=== PATIENT | male | born 1945 | race Caucasian/White ===

== ENCOUNTER → 2024-02-14 08:34 | Outpatient (REF) | payer MEDICARE, OTHER, SELFPAY | LOC: RAD 08:34 | PROVIDERS: ATTENDING PHYSICIAN Nurse Practitioner; FAMILY PHYSICIAN Family Medicine | DX: H53.2 Diplopia (principal) | CPT/HCPCS: 70496; 70498; Q9967 ==

== ENCOUNTER → 2024-04-06 13:51 | Outpatient (REF) | payer MEDICARE, OTHER, SELFPAY | LOC: HWRAD 13:51 | PROVIDERS: ATTENDING PHYSICIAN Otolaryngology Facial Plastic Surgery; FAMILY PHYSICIAN Family Medicine | DX: D11.0 Benign neoplasm of parotid gland (principal) | CPT/HCPCS: 76536 ==

== ENCOUNTER 2024-04-22 23:23 | Inpatient (IN) | payer MEDICARE, OTHER, SELFPAY ==
[2024-04-22 18:10] VITALS: BP 111/64
[2024-04-22] MEDS: TYLENOL 650 MG PO (18:24)
[2024-04-22 19:01] LABS: Urine Albumin 3+ (Neg - Trace); Urine Bilirubin Negative (Negative); Urine Character Very Cloudy (Clear); Urine Color Red; Urine Glucose Negative (Negative); Urine Ketone Trace (Negative); Urine Leukocyte 2+ (Negative); Urine Nitrite Negative (Negative); Urine Occult Blood 4+ (Negative); Urine Specific Gravity 1.015 (<1.030); Urine Urobilinogen Negative (Neg - 1+)
[2024-04-22 19:08] LABS: % Basophils 0.4 % (0-2); % Eosinophils 0.2 % (0-6); % Immature Granulocytes 0.6 % (0-0.5); % Lymphocytes 2.4 % (20.5-51.1); % Neutrophils 86.4 % (42.2-75.2); Absolute Immature Granulocytes 0.1 10^3/uL (0-0.05); Absolute Lymphocytes 0.3 10^3/uL (1.2-3.4); Absolute Neutrophils 8.9 10^3/uL (1.4-6.5); Hematocrit 37.3 % (39.0-52.0); Hemoglobin 13.1 g/dL (13.0-18.0); Mean Corp Hgb Conc. 35.1 g/dL (33.0-37.0); Mean Corpuscular Volume 88.2 fL (80.0-94.0); Mean Platelet Volume 10.3 fL (7.4-10.4); Nucleated Red Blood Cells % 0 % (-); Platelet Count 154 10^3/uL (130-400); Red Blood Cell Count 4.23 10^6/uL (4.70-6.10); White Blood Cell Count 10.3 10^3/uL (4.8-10.8)
[2024-04-22 19:13] LABS: Urine Squamous Cell 0-2 /LPF (Few)
[2024-04-22 19:14] LABS: Urine Bacteria Few (Negative); Urine Red Blood Cell 80-90 /HPF (0-2); Urine White Cell 16-20 /HPF (0-5)
[2024-04-22 19:16] LABS: ALT (SGPT) 115 U/L (0-50); AST (SGOT) 86 U/L (17-59); Albumin 4.1 g/dl (3.5-5.0); Alkaline Phosphatase 68 U/L (38-126); Blood Urea Nitrogen 21 mg/dl (9-20); Calcium 9.5 mg/dl (8.4-10.2); Carbon Dioxide 22 mmol/L (22-30); Chloride 101 mmol/L (98-107); Glucose 110 mg/dl (70-99); Potassium 3.9 mmol/L (3.5-5.1); Sodium 134 mmol/L (135-145); Total Bilirubin 0.7 mg/dl (0.2-1.3); Total Protein 6.4 g/dl (6.3-8.2); eGFR > 60.00
[2024-04-22 19:17] LABS: COVID-19 Antigen Negative (Negative)
--- NOTE | 2024-04-22 19:34 | ED.GENMED ---
History of Present Illness
<Mak Wolfe PA-C - Last Filed: 04/22/24 22:17>
General
Chief Complaint: Fever
Source: patient
Exam Limitations: none
Time Seen by Provider: 04/22/24 19:06
History of Present Illness
History of Present Illness:
78-year-old male presents with onset of weakness rigors confusion earlier today. Earlier this week he had aqua ablation performed at [facility] for enlarged prostate. He had a Khanna catheter which was removed later. He had a voiding trial which he
passed. He has been emptying his bladder completely. He still notes some dysuria. He started on Keflex 1000 mg twice a day starting yesterday. He has had 3 total doses of this. He denies a cough. For a short period time his states that he
was having trouble finding words but this has resolved. He is healthy otherwise.
Past History
<Mak Wolfe PA-C - Last Filed: 04/22/24 22:17>
Past History
ED Past Medical History: Other (noncontibutory)
ED Past Surgical History: Other (noncontributory)
Phy Exam
<Mak Wolfe PA-C - Last Filed: 04/22/24 22:17>
Physical Exam
Physical Exam:
General: Well appearing male, nad
HEENT: NC/AT
Heart: Tachycardic but regular
Lungs; CTA bilaterally
Abd: Soft, nontender
Ext: no cyanosis or edema
Skin: warm, no rash
Neuro: alert and oriented no drift, or facial asymmetry, no aphasia or dysarthria
Sepsis
<Mak Wolfe PA-C - Last Filed: 04/22/24 22:17>
Sepsis Screening
Sepsis Assessment: Sepsis
Sepsis Screen
Sepsis Screen: Sepsis
Date: 04/22/24
Time: 22:17
Course
<Mak Wolfe PA-C - Last Filed: 04/22/24 22:17>
Orders/Labs/Results
Orders:
Orders
04/22/24 18:20
Acetaminophen [Tylenol] 650 mg .ROUTE .STK-MED ONE
04/22/24 18:21
COVID-19 Antigen Urgent
Source: Nasal Swab
Urinalysis Reflex To Culture Urgent
Date Specimen was Collected: 04/22/24
Time Specimen was Collected: 18:15
Urine Microscopic Reflex Cult Urgent
Influenza A+B Rapid Molecular Urgent
CODY Source: Nasal Swab
Specimen Description:
Urine Culture Urgent
CODY Source: U
Specimen Description:
Date Specimen was Collected: 04/22/24
Time Specimen was Collected: 18:15
04/22/24 18:23
Acetaminophen [Tylenol] 650 mg PO NOW STA
04/22/24 18:24
Complete Blood Count/With Diff Urgent
Comprehensive Metabolic Panel Urgent
04/22/24 19:25
CR Chest - 2 Views Urgent
Comment:
Reason For Exam: fever
04/22/24 20:31
CefTRIAXone [Rocephin] 1,000 mg IV NOW STA
04/22/24 21:30
Blood Culture Q30M
CODY Source: Blood/Venous
Specimen Description:
04/22/24 21:56
0.9% Sodium Chloride 1000 ml [Nss] 1,000 ml IV BOLUS
04/22/24 22:00
Blood Culture Q30M
CODY Source: Blood/Venous
Specimen Description:
Abnormal Lab Results
04/22/24 04/22/24
18:21 18:24
RBC 4.23 L 10^6/uL
(4.70-6.10)
Hct 37.3 L %
(39.0-52.0)
Abs Immat Gran (auto) 0.1 H 10^3/uL
(0-0.05)
Absolute Neuts (auto) 8.9 H 10^3/uL
(1.4-6.5)
Absolute Lymphs (auto) 0.3 L 10^3/uL
(1.2-3.4)
Absolute Monos (auto) 1.0 H 10^3/uL
(0.1-0.6)
Immature Gran % 0.6 H %
(0-0.5)
Neutrophils % 86.4 H %
(42.2-75.2)
Lymphocytes % 2.4 L %
(20.5-51.1)
Monocytes % 10.0 H %
(1.7-9.3)
Sodium 134 L mmol/L
(135-145)
BUN 21 H mg/dl
(9-20)
Glucose 110 H mg/dl
(70-99)
AST 86 H U/L
(17-59)
ALT 115 H U/L
(0-50)
Urine Ketones Trace A
(Negative)
Ur Occult Blood Reflex 4+ A
(Negative)
Leukocyte Esterase Rfl 2+ A
(Negative)
Urine RBC 80-90 A /HPF
(0-2)
Urine WBC (Reflex) 16-20 A /HPF
(0-5)
Urine Bacteria (Reflex) Few A
(Negative)
Urine Albumin (Reflex) 3+ A
(Neg - Trace)
04/22/24 18:24
04/22/24 18:24
Vital Signs
Initial and Last Documented VS:
Initial Vital Signs
Temp Pulse Resp BP Pulse Ox
101.9 F H 110 18 111/64 95
04/22/24 18:10 04/22/24 18:10 04/22/24 18:10 04/22/24 18:10 04/22/24 18:10
Last Documented Vital Signs
Temp Pulse Resp BP Pulse Ox
98.5 F 91 18 125/67 97
04/22/24 19:44 04/22/24 22:09 04/22/24 22:09 04/22/24 22:09 04/22/24 19:41
<Cristi Godinez, DO - Last Filed: 04/22/24 21:30>
Orders/Labs/Results
Orders:
Orders
04/22/24 18:20
Acetaminophen [Tylenol] 650 mg .ROUTE .STK-MED ONE
04/22/24 18:21
COVID-19 Antigen Urgent
Source: Nasal Swab
Urinalysis Reflex To Culture Urgent
Date Specimen was Collected: 04/22/24
Time Specimen was Collected: 18:15
Urine Microscopic Reflex Cult Urgent
Influenza A+B Rapid Molecular Urgent
CODY Source: Nasal Swab
Specimen Description:
Urine Culture Urgent
CODY Source: U
Specimen Description:
Date Specimen was Collected: 04/22/24
Time Specimen was Collected: 18:15
04/22/24 18:23
Acetaminophen [Tylenol] 650 mg PO NOW STA
04/22/24 18:24
Complete Blood Count/With Diff Urgent
Comprehensive Metabolic Panel Urgent
04/22/24 19:25
CR Chest - 2 Views Urgent
Comment:
Reason For Exam: fever
04/22/24 20:31
CefTRIAXone [Rocephin] 1,000 mg IV NOW STA
04/22/24 21:30
Blood Culture Q30M
CODY Source: Blood/Venous
Specimen Description:
04/22/24 21:56
0.9% Sodium Chloride 1000 ml [Nss] 1,000 ml IV BOLUS
04/22/24 22:00
Blood Culture Q30M
CODY Source: Blood/Venous
Specimen Description:
Abnormal Lab Results
04/22/24 04/22/24
18:21 18:24
RBC 4.23 L 10^6/uL
(4.70-6.10)
Hct 37.3 L %
(39.0-52.0)
Abs Immat Gran (auto) 0.1 H 10^3/uL
(0-0.05)
Absolute Neuts (auto) 8.9 H 10^3/uL
(1.4-6.5)
Absolute Lymphs (auto) 0.3 L 10^3/uL
(1.2-3.4)
Absolute Monos (auto) 1.0 H 10^3/uL
(0.1-0.6)
Immature Gran % 0.6 H %
(0-0.5)
Neutrophils % 86.4 H %
(42.2-75.2)
Lymphocytes % 2.4 L %
(20.5-51.1)
Monocytes % 10.0 H %
(1.7-9.3)
Sodium 134 L mmol/L
(135-145)
BUN 21 H mg/dl
(9-20)
Glucose 110 H mg/dl
(70-99)
AST 86 H U/L
(17-59)
ALT 115 H U/L
(0-50)
Urine Ketones Trace A
(Negative)
Ur Occult Blood Reflex 4+ A
(Negative)
Leukocyte Esterase Rfl 2+ A
(Negative)
Urine RBC 80-90 A /HPF
(0-2)
Urine WBC (Reflex) 16-20 A /HPF
(0-5)
Urine Bacteria (Reflex) Few A
(Negative)
Urine Albumin (Reflex) 3+ A
(Neg - Trace)
04/22/24 18:24
04/22/24 18:24
Vital Signs
Initial and Last Documented VS:
Initial Vital Signs
Temp Pulse Resp BP Pulse Ox
101.9 F H 110 18 111/64 95
04/22/24 18:10 04/22/24 18:10 04/22/24 18:10 04/22/24 18:10 04/22/24 18:10
Last Documented Vital Signs
Temp Pulse Resp BP Pulse Ox
98.5 F 91 18 125/67 97
04/22/24 19:44 04/22/24 22:09 04/22/24 22:09 04/22/24 22:09 04/22/24 19:41
<Mak Wolfe PA-C - Last Filed: 04/22/24 22:17>
MDM/Problems Addressed
Differential Diagnosis Includes:
Patient had episode of weakness and confusion with rigors. Found to have temperature here on arrival of 101.9. Recent Khanna catheter instrumentation and just darted Keflex. Patient now back to his neurologic baseline. No focal signs on exam. I
suspect symptoms are related to his fever not TIA given lack of other medical problems.
Will check labs including COVID flu urinalysis and chest x-ray. 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
<Mak Wolfe PA-C - Last Filed: 04/22/24 22:17>
*Critical Care Note
Total Time (30-74mins, 75-104mins- exclusive of procedures): Not Applicable
<Mak Wolfe PA-C - Last Filed: 04/22/24 22:17>
Update Note
Update Note:
Patient reevaluated temperature has improved. Urinalysis consistent with UTI. Chest x-ray negative COVID and flu are negative. Long discussion had with emergency room attending and family subsequently Regarding treatment options. Given
confusion episode and incontinence related to UTI concern for possible complicated UTI already on an oral antibiotic. Fluids ordered Rocephin ordered. Will admit for further evaluation
ED Attending Note
<Mak Wolfe PA-C - Last Filed: 04/22/24 22:17>
-
Portions of this chart may have been created with voice recognition software.� Occasional wrong word or��sound alike� substitutions may have occurred due to the inherent limitations of voice recognition software.
<Cristi Godinez DO - Last Filed: 04/22/24 21:30>
ED Attending Note
Patient seen and examined by attending physician: Yes
I performed the substantive portion of visit, reviewed & personally made and approve the management plan that is documented in note by myself or OLIVER.: Yes
ED Attending Note:
78-year-old male who just had a aqua ablation of his prostate. describes the patient earlier that was significantly altered. Patient had a fever. Has been on For a day and a half. Patient now does feel better. Denies any pain but is had
bleeding and was told he would have persistent bleeding for some time. Exam: Awake and alert, no respiratory distress, heart normal sinus rhythm on telemetry. Assessment plan: Does look better but given his altered mentation and recent aqua
ablation and Khanna catheter was just removed on Wednesday, admit. He has been on Keflex and despite that developed a fever up to 102. Concern for possible bacteremia. check cultures treat with broad-spectrum antibiotics
Discharge Plan
Departure
Patient Disposition: Admit
Date of Disposition: 04/22/24
Time of Disposition: 22:15
Presentation/result/management discussed w/ accepting MD/DO: Hospitalist
Discharge Problem:
Acute UTI
Prescriptions:
No Action
ascorbic acid (vitamin C) [Vitamin C] 1,000 mg Tablet
1,000 mg PO DAILY
cyanocobalamin (vitamin B-12) 1,000 mcg Tablet
1,000 mcg PO DAILY
travoprost 0.004 % Drops
1 drp BOTH EYES DAILY
tamsulosin 0.4 mg Capsule
0.4 mg PO DAILY
fluticasone propionate [Flonase] 50 mcg/actuation [place],Suspension
1 spray INTRANASAL DAILY
[place] 3 Fish Oil Capsule
1,000 mg PO DAILY
cholecalciferol (vitamin D3) 125 mcg (5,000 unit) Tablet
5,000 unit PO DAILY
magnesium 750 MG
750 mg PO DAILY
multivitamin
1 tab PO DAILY
acetaminophen 500 mg Tablet
1,000 mg PO Q6H PRN (Reason: pain)
Referrals:
Jerad Cole MD [Family Provider] -
Interventions
Interventions:
*Risk Screen - Suicide Last Done: 04/22/24 18:10
*General Assessment Last Done: 04/22/24 18:10
*Neglect/Abuse Screening Last Done: 04/22/24 18:10
ED- Neurological Assessment Last Done: 04/22/24 19:42
ED-Skin Assessment Last Done: 04/22/24 19:42
Discharge Date and Time
Print Language: KINYARWANDA
[2024-04-22 19:41] VITALS: BP 119/60
[2024-04-22] MEDS: ROCEPHIN 1000 MG IV (20:35)
[2024-04-22] MEDS: NSS 1000 IV (22:07)
[2024-04-22 22:09] VITALS: BP 125/67
--- NOTE | 2024-04-22 23:25 | HPS.HSE ---
Family Physician
-
Family Physician: Jerad Cole
Chief Complaint
-
Confusion, Fatigue
History of Present Illness
Patient is a 78y M with PMH significant for BPH who presents to ED complaining of confusion and fatigue. Patient states that he underwent aqua ablation procedure of the prostate on Wednesday at [facility]. He as discharged from that facility on
Wednesday. He had Khanna catheter removed on Wednesday. He was on Keflex 1000mg BID starting Wednesday AM (was supposed to begin AM but was not aware in advance that Khanna was going to be removed).
This AM, patient states that he felt cold, achy and very fatigued. He slept for most of the day. This evening when his returned home she found him to be somewhat confused and they presented to the ED for further evaluation.
In the ED, patient is noted to have fever to 101.9. He does report urinary frequency which he expected following his recent procedure.
No GI complaints. No abdominal pain or flank pain.
Medical History
Past Medical History
Past Medical History: Reports Other
Additional Past Medical History:
BPH
Dysconjugate Gaze
DJD
A-Flutter s/p Ablation
Parotid Cancer
Past Surgical History: Reports Other
Additional Past Surgical History:
Aqua Ablation of the Prostate (04/17/24)
Left TSA
A-Flutter Ablation
Parotid Excision
Hernia Repair
Cysto / Stent
Social History
Tobacco: Non-smoker
Alcohol: Daily ( 1 drink daily.)
Family History
Family History: Not pertinent
Allergies / Home Medications
Allergies reflects when Allergies were last updated in [facility].
Home Medications with original date entered in [facility]
Allergy/Medication List:
Allergies
Allergy/AdvReac Type Severity Reaction Status Date / Time
adhesive Allergy Rash Verified 02/10/22 10:53
chlorhexidine Allergy Rash Verified 02/10/22 10:53
[From Hibiclens]
codeine [Codeine] Allergy nausea, Verified 02/10/22 10:53
dizzy
isopropyl alcohol Allergy Rash Verified 02/10/22 10:53
[From ChloraPrep Clear]
povidone-iodine Allergy Rash Verified 02/10/22 10:53
[From Betadine]
pseudoephedrine Allergy heart Verified 02/10/22 10:53
[From Sudafed] flutter
soap [From Betadine] Allergy Rash Verified 02/06/22 16:19
seasonal Allergy nasal Uncoded 02/10/22 10:53
congestion
triple and double antibiotic Allergy Rash Uncoded 02/06/22 16:19
neal
Home Medications
cholecalciferol (vitamin D3) 125 mcg (5,000 unit) tablet 5,000 unit PO DAILY 02/06/22
multivitamin 1 tab PO DAILY 02/06/22
omega-3 fatty acids 1,000 mg PO DAILY 02/06/22
travoprost 0.004 % eye drops 1 drp BOTH EYES DAILY 02/06/22
acetaminophen 500 mg tablet 1,000 mg PO Q6H PRN pain 02/10/22
solifenacin 5 mg tablet 5 mg PO DAILY 04/22/24
Review of Systems
-
History Source: Patient
A 12 point ROS was completed and negative except as noted: Yes
Constitutional: Reports Fatigue and Chills; Denies Fever
EENT: Denies Sore Throat
Respiratory: Denies Cough or Trouble Breathing
Cardiac: Denies Chest Pain or Palpitations
Abdomen/GI: Denies Abdominal Pain, Nausea, Vomiting or Diarrhea
: Reports Frequency; Denies Dysuria
Musculoskeletal: Denies Joint Pain or Edema
Neurological: Denies Dizzy or Headache
Psych: Denies Depression or Anxiety
Physical Exam
Vital Signs
Vital Signs
Temp Pulse Resp BP Pulse Ox
98.5 F 91 18 125/67 97
04/22/24 19:44 04/22/24 22:09 04/22/24 22:09 04/22/24 22:09 04/22/24 19:41
Physical Exam
General: Other (78y M in no acute distress.)
HEENT: Moist mucous membranes and PERRLA
Respiratory: Clear; No Wheezes, Rales or Rhonchi
Cardiac: S1/S2 and Regular Rhythm; No Murmur
GI: Soft, Non Tender, Non Distended and Normal Bowel Sounds
Musculoskeletal: No Clubbing, No Cyanosis and No Edema
Neuro: AO x 3 and Nonfocal/grossly intact
Laboratory Results
-
04/22/24 18:24
04/22/24 18:24
Laboratory Results
Total Bilirubin 0.7 mg/dl (0.2-1.3) 04/22/24 18:24
AST 86 U/L (17-59) H 04/22/24 18:24
ALT 115 U/L (0-50) H 04/22/24 18:24
Alkaline Phosphatase 68 U/L (38-126) 04/22/24 18:24
Impression/Plan
-
A/P: Patient is a 78y M with PMH significant for BPH s/p recent aqua ablation procedure who presents to ED for evaluation of fatigue and confusion.
Sepsis likely secondary to source
Acute TME secondary to the above - improved
s/p Aqua Ablation of the Prostate
- Admit for further evaluation and treatment.
- Patient presents with fever and tachycardia with suspected urinary source of infection.
- IV abx pending urine culture data.
- Follow fever curve and monitor for any new symptoms / complaints.
- Follow for continued clinical improvement
DVT Prophylaxis: SCDs
Code Status: Full
[2024-04-23] VITALS (9 sets, daily range): BP systolic 113–161; BP diastolic 56–74; PULSE 86–121; BMI 28.8
[2024-04-23] MEDS: LR 1000 IV (01:23)
[2024-04-23] MEDS: VESICARE 5 MG PO (08:02)
[2024-04-23 08:48] LABS: Blood Urea Nitrogen 18 mg/dl (9-20); Calcium 8.9 mg/dl (8.4-10.2); Carbon Dioxide 25 mmol/L (22-30); Chloride 102 mmol/L (98-107); Estimated Creatinine Clearance 62 ml/min; Glucose 102 mg/dl (70-99); Potassium 4.1 mmol/L (3.5-5.1); Sodium 135 mmol/L (135-145); eGFR > 60.00
[2024-04-23 08:51] LABS: Hematocrit 33.8 % (39.0-52.0); Mean Corp Hgb Conc. 35.5 g/dL (33.0-37.0); Mean Corpuscular Hgb 31.3 pg (27.0-31.0); Mean Platelet Volume 10.3 fL (7.4-10.4); Platelet Count 139 10^3/uL (130-400); Red Blood Cell Count 3.84 10^6/uL (4.70-6.10); Red Cell Dist. Width 13.2 % (11.5-14.5); White Blood Cell Count 11.2 10^3/uL (4.8-10.8)
--- NOTE | 2024-04-23 09:20 | CM ---
CM following re: discharge planning.
Reviewed pt's chart, met with pt.
Pt is a 78 year old male, admitted with primary dx of Sepsis.
Pt reports he lives with spouse 2SH, no steps, has supportive daughter. Pt described himself as independent in all areas [employer]. drives. No DME, VN or SNF history.
PCP: Jerad Cole
Pharmacy: [facility]
D/C plan: home with anticipated no needs. Family to transport at discharge.
CM will follow with discharge plan updates as hospitalization progresses
--- NOTE | 2024-04-23 10:24 | W.PN.HOSP.TC ---
Today's Communication/Plan
-
Await cultures
Continue antibiotics
Repeat labs in the morning
Assessment / Plan
Assessment / Plan
Gen-AAOx3, NAD
HEENT-NC, AT, anicteric, clear oral mm
Neck-supple
CV-reg, no M, +S1/S2
Lungs-clear B/L
Abd-soft, NT, ND
Ext-no edema
Musculoskeletal-no cyanosis, clubbing
Skin-warm and dry
Neuro-grossly non-focal
Psych-calm, cooperative
Sepsis due to UTI -suspect related to recent aqua ablation procedure for BPH. Continue empiric antibiotics await cultures. Hemodynamically stable.
Acute TME - due to sepsis, UTI. Symptoms resolved.
Hyponatremia -POA, resolved.
Mild transaminitis -monitor for now.
BPH
Full code
Anticipated Discharge: 24 - 48 hours
Subjective/Interval History
-
Date of Service: April 23, 2024
Patient seen and examined. Feeling better. No complaints.
Objective Data
-
Labs:
Laboratory Results
04/23/24
07:28
WBC 11.2 H
Hgb 12.0 L
Hct 33.8 L
Plt Count 139
Sodium 135
Potassium 4.1
Chloride 102
Carbon Dioxide 25
BUN 18
Creatinine 1.1
Glucose 102 H
Calcium 8.9
Vital Signs:
Vital Signs
Temp Pulse Resp BP Pulse Ox
99.1 F 50 13 161/67 93
04/23/24 07:46 04/23/24 07:46 04/23/24 07:46 04/23/24 07:46 04/23/24 07:46
I&O
04/22/24 04/23/24 04/24/24
06:59 06:59 06:59
Intake Total 1560 / 1560 240 / 240
Balance 1560 / 1560 240 / 240
Review of Systems
-
History Source: Patient
All other systems: Reviewed and negative
[2024-04-23] MEDS: LR IV (12:23)
[2024-04-23] MEDS: ROCEPHIN 1000 MG IV (19:48)
[2024-04-23] MEDS: XALATAN OPHTHALMIC SOLUTION 1 DROP BOTH EYES (19:48)
[2024-04-23] MEDS: STERILE WATER FOR INJECTION 10 ML IV (19:48)
[2024-04-24] VITALS (7 sets, daily range): BP systolic 118–152; BP diastolic 56–72; PULSE 80; O2SAT 99; BMI 28.5
[2024-04-24 08:08] LABS: ALT (SGPT) 69 U/L (0-50); AST (SGOT) 38 U/L (17-59); Albumin 3.8 g/dl (3.5-5.0); Alkaline Phosphatase 77 U/L (38-126); Blood Urea Nitrogen 17 mg/dl (9-20); Calcium 9.1 mg/dl (8.4-10.2); Carbon Dioxide 25 mmol/L (22-30); Chloride 100 mmol/L (98-107); Estimated Creatinine Clearance 62 ml/min; Glucose 83 mg/dl (70-99); Sodium 137 mmol/L (135-145); Total Bilirubin 0.7 mg/dl (0.2-1.3); eGFR > 60.00
[2024-04-24 08:19] LABS: Potassium 4.1 mmol/L (3.5-5.1)
[2024-04-24] MEDS: VESICARE 5 MG PO (08:32)
[2024-04-24 10:49] LABS: Hemoglobin 12.8 g/dL (13.0-18.0); Mean Corp Hgb Conc. 34.6 g/dL (33.0-37.0); Mean Corpuscular Hgb 31.4 pg (27.0-31.0); Mean Corpuscular Volume 90.7 fL (80.0-94.0); Mean Platelet Volume 10.7 fL (7.4-10.4); Platelet Count 172 10^3/uL (130-400); Red Blood Cell Count 4.08 10^6/uL (4.70-6.10); Red Cell Dist. Width 13.3 % (11.5-14.5)
[2024-04-24 10:50] LABS: Absolute Neutrophils -Man Diff 12.6 10^3/uL (1.4-6.5); Band Neutrophils 22 % (0-3); Eosinophils 2 % (0-6); Lymphocytes 2 % (20-51); Monocytes 6 % (2-9); Segmented Neutrophils 68 % (42-75)
[2024-04-24 10:51] LABS: Normal RBC Morphology Yes; Platelets Checked Yes; Total Cells Counted 100
[2024-04-24] MEDS: MAXIPIME 1000 MG IV (10:58)
[2024-04-24] MEDS: TRIAMCINOLONE ACETONIDE 0.1% CREAM 1 APPLIC TOPICAL ×2 (10:58→20:56)
[2024-04-24] MEDS: STERILE WATER FOR INJECTION 10 ML IV ×2 (10:58→18:03)
--- NOTE | 2024-04-24 11:20 | CM ---
ID consulted.
Continue IV antibiotics.
PT OT ordered.
Lives with family .
PLAN Discharge planning ongoing
--- NOTE | 2024-04-24 11:21 | CONS.URO ---
Consultation
-
Date/Time Consultation Requested: 04/24
Date/Time Consultation Performed: 04/24
Performing Provider: Mary
Reason for Consultation: urosepsis/bacteremia s/p Aquablation
Medical History
History of Present Illness
78M s/p Aquablation (Dr. Rodriguez) on 04/17/24.
Khanna catheter removed post-op on Friday 04/21 @1pm in office - per patient, he passed a voiding trial in office.
Started Cephalexin on Wednesday AM (was instructed to start prior to catheter removal but was not aware).
Noted fevers, chills, and confusion immediately overnight.
Per spouse, 'having trouble finding words.'
Due to concerns about possible TIA vs. infection, spouse brought him to ED.
BPH
Dysconjugate Gaze
DJD
A-Flutter s/p Ablation
Parotid Cancer
Past Surgical History: Reports Other
Additional Past Surgical History:
Aqua Ablation of the Prostate (04/17/24)
Left TSA
A-Flutter Ablation
Parotid Excision
Hernia Repair
Cysto / Stent
Past Medical History
Past Medical History: Cancer (parotid cancer) and Other (BPH, dysconjugate gaze, DJD, a-flutter s/p ablation)
Past Surgical History: Urological (Aquablation (04/17/24), left TSA, a-flutter ablation, parotid excision, hernia repair, cystoscopy/stent placement)
Social History
Tobacco: Non-smoker
Alcohol: Occasional
Drug: None
Personal:
Living: With Family
Employment: Retired
Family History
Family History: Reviewed & Not Pertinent
Allergies/Home Medications
Allergies
Allergy/AdvReac Type Severity Reaction Status Date / Time
adhesive Allergy Rash Verified 02/10/22 10:53
chlorhexidine Allergy Rash Verified 02/10/22 10:53
[From Hibiclens]
codeine [Codeine] Allergy nausea, Verified 02/10/22 10:53
dizzy
isopropyl alcohol Allergy Rash Verified 02/10/22 10:53
[From ChloraPrep Clear]
povidone-iodine Allergy Rash Verified 02/10/22 10:53
[From Betadine]
pseudoephedrine Allergy heart Verified 02/10/22 10:53
[From Sudafed] flutter
soap [From Betadine] Allergy Rash Verified 02/06/22 16:19
seasonal Allergy nasal Uncoded 02/10/22 10:53
congestion
triple and double antibiotic Allergy Rash Uncoded 02/06/22 16:19
neal
Home Medications
�Medication �Instructions �Recorded �Confirmed �Type
cholecalciferol (vitamin D3) 125 5,000 unit PO DAILY Supplement 02/06/22 04/22/24 History
mcg (5,000 unit) tablet
multivitamin 1 tab PO DAILY Supplement 02/06/22 04/22/24 History
omega-3 fatty acids 1,000 mg PO DAILY Supplement 02/06/22 04/22/24 History
travoprost 0.004 % eye drops 1 drp BOTH EYES DAILY Eye Condition 02/06/22 04/22/24 History
acetaminophen 500 mg tablet 1,000 mg PO Q6H PRN pain 02/10/22 04/22/24 History
solifenacin 5 mg tablet 5 mg PO DAILY Neurological 04/22/24 04/22/24 History
Condition
Review of Systems
-
History Source: Patient and Family
A 12 point Review of Systems was completed except as noted: Yes
Physical Exam
Vital Signs
Vital Signs
Temp Pulse Resp BP Pulse Ox
97.4 F 74 18 134/68 97
04/24/24 11:04 04/24/24 11:04 04/24/24 11:04 04/24/24 11:04 04/24/24 11:04
Lab / Testing Results
Laboratory Results
04/24/24 06:02
04/24/24 06:03
Physical Exam
General: Well Developed, Well Nourished and No Apparent Distress
HEENT: Normocephalic
Respiratory: Non Labored Respirations
Cardiac: Regular Rhythm
Breast: N/A
GI: Soft, Non Tender and Non Distended
Rectal: Deferred by Provider
Genito-urinary: No Costovertebral Tend
Musculoskeletal: No Edema
Skin: Warm and Dry
Neuro: AO x 3, No Motor Deficits and Nonfocal/Grossly Intact
Assessment / Plan
-
Pseudomonas urosepsis + bacteremia
BPH (>100 cc gland) s/p Aquablation (03/2024)
UCx/BCx x1 => Pseudomonas
- IV antibiotics per ID w/ transition to treatment course for bacteremia
- No indication for Khanna catheter- LUTS improved since admission
- Patient's current admission and plan of care d/w his urologist (Dr. Rodriguez)
- Outpatient F/U w/ Dr. Rodriguez in 3-4 weeks as scheduled
D/w patient and spouse.
D/w Hospitalist.
D/w patient's urologist, Dr. Rodriguez (via telephone).
--- NOTE | 2024-04-24 13:57 | PTOTSP ---
PATIENT MOBILIZING INDEPENDENTLY ON LEVEL SURFACES WELL ELEVATIONS WITHOUT A DEVICE REQUIRING NO FURTHER ACUTE CARE SKILLED P.T. ENCOURAGED PATIENT TO CONTINUE TO AMBULATE WITH ON UNIT. THEY ARE AGREEABLE. WILL DISCHARGE FROM P.T.
SERVICES AT THIS TIME.
--- NOTE | 2024-04-24 14:21 | W.PN.HOSP.TC ---
Today's Communication/Plan
-
Cefepime; follow cultures
ID/Urology evals
Assessment / Plan
Assessment / Plan
Assessment:
Complicated UTI/pseudomonas UTI with sepsis POA (fever, leukocytosis) along with pseudomonas bacteremia
- recent Aqua-ablation procedure for BPH 04/17/24 (Dr. Jennifer Steele/[facility])
- stop Rocephin, start Cefepime. Consult ID and Urology
Post-procedure hematuria
- related to recent Aqua-ablation procedure for BPH 04/17/24 (Dr. Jennifer Steele/[facility])
- subjectively lightening per patient
TME in setting of complicated UTI
- improving
Hyponatremia - resolved
Mild transaminitis - resolving
hx of BPH
- OP Urology f/u
DVT ppx: SCDs while hematuria continues to recover
Code: Full
Anticipated Discharge: > 48 hours
Subjective/Interval History
-
Date of Service: April 24, 2024
reports some urinary burning, small clots passed last night and hematuria (but improving since last weeks outpatient procedure)
denies any urinary retention
Objective Data
-
Labs:
Laboratory Results
04/24/24 04/24/24
06:02 06:03
WBC 14.0 H
Hgb 12.8 L
Hct 37.0 L
Plt Count 172 D
Sodium 137
Potassium 4.1
Chloride 100
Carbon Dioxide 25
BUN 17
Creatinine 1.1
Glucose 83
Calcium 9.1
Total Bilirubin 0.7
AST 38
ALT 69 H
Alkaline Phosphatase 77
Vital Signs:
Vital Signs
Temp Pulse Resp BP Pulse Ox
97.4 F 74 18 134/68 97
04/24/24 11:04 04/24/24 11:04 04/24/24 11:04 04/24/24 11:04 04/24/24 11:04
I&O
04/23/24 04/24/24 04/25/24
06:59 06:59 06:59
Intake Total 1560 / 1560 1680 / 1680
Balance 1560 / 1560 1680 / 1680
Physical Exam
-
General: No Apparent Distress
HEENT: Normocephalic and Atraumatic
Respiratory: Negative Wheezes or Rales
Cardiac: Regular Rhythm and S1/S2
GI: Soft
Genito-urinary: No Costovertebral Tender
Skin: Rash (dry macular rash across back, +pruritis)
Neuro: AO x 3
Psych: Calm
Data Reviewed
-
Total Time Spent with Patient (in minutes): 42
Labs: Labs Reviewed by me
--- NOTE | 2024-04-24 15:59 | CON.ID ---
Consultation
-
Date/Time Consultation Requested: 04/24/2024 0930
Date/Time Consultation Performed: 04/24/24 1540
Requesting Provider: Dr. Gomez
Performing Provider: Dr. Reza
Reason for Consultation: Complicated urinary tract infection; bacteremia
Chief Complaint / Past History
History of Present Illness
Chad Morris is a 78-year-old man being evaluated at the request of Dr. Gomez in regards to bacteremia. History is obtained from chart review, along with patient interview and history obtained from the patient's who is at the bedside.
The patient has a significant past medical history of BPH and underwent aqua ablation on 04/17/2024. He was discharged on 04/21, to continue on a course of Keflex 1 g p.o. every 12 hours. The following day he reports that he did not feel well later
in the day, complaining of increased tiredness, chills, feeling cold and he had several episodes of being incontinent. His reports that he appeared disoriented. He presented to the emergency room. [facility] on 04/22, and found to be
febrile to 101.9 degrees. He was started on empiric ceftriaxone, and cultures were obtained, which are now showing the presence of Pseudomonas in the blood and urine. Infectious Diseases is asked to comment upon further antimicrobial management.
At the present time he reports he is feeling somewhat improved. He has not had any fever since admission. He denies any back pain or flank pain. He continues to have dysuria, along with some hematuria which he was told would be to be expected.
Past History
Additional Past Medical History:
BPH
Glaucoma
Hx parotid tumor
Additional Past Surgical History:
Prostatic aqua ablation
Left shoulder replacement
Hernia repair
Allergy History:
adhesive Allergy (Verified 02/10/22 10:53)
Rash
chlorhexidine [From Hibiclens] Allergy (Verified 02/10/22 10:53)
Rash
codeine [Codeine] Allergy (Verified 02/10/22 10:53)
nausea, dizzy
isopropyl alcohol [From ChloraPrep Clear] Allergy (Verified 02/10/22 10:53)
Rash
povidone-iodine [From Betadine] Allergy (Verified 02/10/22 10:53)
Rash
pseudoephedrine [From Sudafed] Allergy (Verified 02/10/22 10:53)
heart flutter
soap [From Betadine] Allergy (Verified 02/06/22 16:19)
Rash
seasonal Allergy (Uncoded 02/10/22 10:53)
nasal congestion
triple and double antibiotic neal Allergy (Uncoded 02/06/22 16:19)
Rash
Current Antibiotics:
Cefepime 1 g IV every 8 hours
Social History
Tobacco: Non-Smoker
Alcohol: Daily
Drug: None
Personal:
Living: With Family
Employment: Retired
Review of Systems
Vital Signs
Temp Pulse Resp BP Pulse Ox
97.5 F 81 18 120/56 97
04/24/24 15:04 04/24/24 15:04 04/24/24 15:04 04/24/24 15:04 04/24/24 15:04
Physical Exam
Physical Exam
Constitutional: No Acute Distress, Comfortable and Non-toxic
Eyes: No Conjunctival Hemorrhage and Sclera Anicteric
Oral: No Thrush and No Ulcers
Cardiovascular: Regular Rate and S1/S2; Negative S3/S4
Pulmonary: Clear; Negative Wheezes, Rales or Rhonchi
Gastrointestinal: Soft, Non Tender, Non Distended and Normal Bowel Sounds
Genito-Urinary: Negative Khanna or CVA Tenderness
Skin: Warm and Dry; Negative Rash or Jaundice
Neurological: Awake and Alert
Psychological: Calm
Lab / Diagnostic Study Results
04/24/24 06:02
04/24/24 06:03
Abs Immat Gran (auto) 0.1 10^3/uL (0-0.05) H 04/22/24 18:24
Absolute Neuts (auto) 8.9 10^3/uL (1.4-6.5) H 04/22/24 18:24
Absolute Lymphs (auto) 0.3 10^3/uL (1.2-3.4) L 04/22/24 18:24
Absolute Monos (auto) 1.0 10^3/uL (0.1-0.6) H 04/22/24 18:24
Absolute Basos (auto) 0.0 10^3/uL (0-0.2) 04/22/24 18:24
Total Counted 100 04/24/24 06:02
Immature Gran % 0.6 % (0-0.5) H 04/22/24 18:24
Neutrophils % 86.4 % (42.2-75.2) H 04/22/24 18:24
Lymphocytes % 2.4 % (20.5-51.1) L 04/22/24 18:24
Monocytes % 10.0 % (1.7-9.3) H 04/22/24 18:24
Eosinophils % 0.2 % (0-6) 04/22/24 18:24
Basophils % 0.4 % (0-2) 04/22/24 18:24
Abs Neuts (Manual) 12.6 10^3/uL (1.4-6.5) H 04/24/24 06:02
Segmented Neutrophils 68 % (42-75) 04/24/24 06:02
Band Neutrophils 22 % (0-3) H 04/24/24 06:02
Lymphocytes (Manual) 2 % (20-51) L 04/24/24 06:02
Eosinophils (Manual) 2 % (0-6) 04/24/24 06:02
Ur Squamous Epith Cells 0-2 /LPF (Few) 04/22/24 18:21
Microbiology Results
Micro:
04/22/24 21:44 Blood Culture - Preliminary
Blood/Venous Pseudomonas aeruginosa
Gram Stain - Preliminary
04/22/24 18:21 Urine Culture - Preliminary
Urine Pseudomonas aeruginosa
04/22/24 21:44 Blood Culture - Preliminary
Blood/Venous No Growth in 24 hours- Final report to follow
04/22/24 18:21 Influenza Types A & B (EKATERINA) - Final
Nasal Swab Negative for Influenza A & B, NAAT
Negative results must be combined with clinical observations
and patient history.
Nucleic Acid Amplification test (NAAT)performed on the
[employer] platform.
Assessment / Plan
Pseudomonas bacteremia
Pseudomonas complicated urinary tract infection
Recent aqua ablation for BPH
Fever
Leukocytosis
Recommendations:
Continue with cefepime; change dose to 2 g IV every 12 hours.
Repeat blood cultures in a.m. to assure clearance.
Monitor white count and temperature curve.
Await final susceptibility data to guide further antimicrobial selection and potential de-escalation.
Given bacteremia, check ultrasound of kidney and bladder.
[2024-04-24] MEDS: MAXIPIME 2000 MG IV (18:03)
[2024-04-24] MEDS: XALATAN OPHTHALMIC SOLUTION 1 DROP BOTH EYES (20:56)
[2024-04-25] MEDS: TYLENOL 650 MG PO ×5 (01:57→22:51)
[2024-04-25 03:19] VITALS: BP 127/68
[2024-04-25] MEDS: STERILE WATER FOR INJECTION 10 ML IV (06:03)
[2024-04-25] MEDS: MAXIPIME 2000 MG IV (06:03)
[2024-04-25 06:54] LABS: % Basophils 0.5 % (0-2); % Eosinophils 4.2 % (0-6); % Immature Granulocytes 1.1 % (0-0.5); % Lymphocytes 8.3 % (20.5-51.1); % Monocytes 7.1 % (1.7-9.3); % Neutrophils 78.8 % (42.2-75.2); Absolute Basophils 0.1 10^3/uL (0-0.2); Absolute Eosinophils 0.4 10^3/uL (0-0.7); Absolute Immature Granulocytes 0.1 10^3/uL (0-0.05); Absolute Lymphocytes 0.8 10^3/uL (1.2-3.4); Absolute Monocytes 0.7 10^3/uL (0.1-0.6); Absolute Neutrophils 7.6 10^3/uL (1.4-6.5); Hematocrit 36.7 % (39.0-52.0); Hemoglobin 12.7 g/dL (13.0-18.0); Mean Corp Hgb Conc. 34.6 g/dL (33.0-37.0); Mean Corpuscular Hgb 30.5 pg (27.0-31.0); Mean Corpuscular Volume 88.2 fL (80.0-94.0); Mean Platelet Volume 9.7 fL (7.4-10.4); Nucleated Red Blood Cells % 0 % (-); Platelet Count 174 10^3/uL (130-400); Red Blood Cell Count 4.16 10^6/uL (4.70-6.10); Red Cell Dist. Width 13.1 % (11.5-14.5); White Blood Cell Count 9.6 10^3/uL (4.8-10.8)
[2024-04-25 07:07] LABS: ALT (SGPT) 62 U/L (0-50); AST (SGOT) 31 U/L (17-59); Albumin 3.8 g/dl (3.5-5.0); Alkaline Phosphatase 79 U/L (38-126); Blood Urea Nitrogen 19 mg/dl (9-20); Calcium 9.2 mg/dl (8.4-10.2); Carbon Dioxide 25 mmol/L (22-30); Chloride 103 mmol/L (98-107); Estimated Creatinine Clearance 68 ml/min; Glucose 122 mg/dl (70-99); Potassium 4.2 mmol/L (3.5-5.1); Sodium 137 mmol/L (135-145); Total Bilirubin 0.4 mg/dl (0.2-1.3); Total Protein 6.4 g/dl (6.3-8.2); eGFR > 60.00
[2024-04-25 07:33] VITALS: BP 138/67
[2024-04-25] MEDS: VESICARE 5 MG PO (07:56)
[2024-04-25] MEDS: TRIAMCINOLONE ACETONIDE 0.1% CREAM 1 APPLIC TOPICAL ×2 (07:56→20:58)
[2024-04-25 09:50] VITALS: BP 139/67; PULSE 76; O2SAT 97
[2024-04-25 11:50] VITALS: BP 143/78
--- NOTE | 2024-04-25 12:26 | W.PN.HOSP.TC ---
Today's Communication/Plan
-
add Pyridium
follow bladder scans
continue IV abx pending repeat cultures
Assessment / Plan
Assessment / Plan
Assessment:
Complicated UTI/pseudomonas UTI with sepsis POA (fever, leukocytosis) along with pseudomonas bacteremia
- recent Aqua-ablation procedure for BPH 04/17/24 (Dr. Jennifer Steele/[facility])
- continue Cefepime, day 2
- follow repeat cultures
- ID and Urology following
- Bladder scans
- renal/Bladder US: Moderate urinary retention with 322 mL postvoid residual. Normal kidneys with no hydronephrosis
Post-procedure hematuria
- related to recent Aqua-ablation procedure for BPH 04/17/24 (Dr. Jennifer Steele/[facility])
- subjectively lightening per patient
Rash
- continue steroids topically
TME in setting of complicated UTI
- improving
Hyponatremia - resolved
Mild transaminitis - resolving
hx of BPH
- OP Urology f/u
DVT ppx: SCDs while hematuria continues to recover
Code: Full
Anticipated Discharge: 24 - 48 hours
Subjective/Interval History
-
Date of Service: April 25, 2024
reports some ongoing urinary burning, partially relieved with Tylenol
Objective Data
-
Labs:
Laboratory Results
04/25/24
06:15
WBC 9.6
Hgb 12.7 L
Hct 36.7 L
Plt Count 174
Sodium 137
Potassium 4.2
Chloride 103
Carbon Dioxide 25
BUN 19
Creatinine 1.0
Glucose 122 H
Calcium 9.2
Total Bilirubin 0.4
AST 31
ALT 62 H
Alkaline Phosphatase 79
Vital Signs:
Vital Signs
Temp Pulse Resp BP Pulse Ox
98.1 F 77 20 143/78 98
04/25/24 11:50 04/25/24 11:50 04/25/24 11:50 04/25/24 11:50 04/25/24 11:50
I&O
04/24/24 04/25/24 04/26/24
06:59 06:59 06:59
Intake Total 1679 / 0 1919
Balance 1679 / 0 1919
Physical Exam
-
General: No Apparent Distress
HEENT: Normocephalic and Atraumatic
Respiratory: Wheezes
Cardiac: Regular Rhythm and S1/S2
GI: Soft and Nontender
Genito-urinary: No Costovertebral Tender
Neuro: AO x 3
Hematologic / Lymphatic: No Lymphadenopathy
Psych: Calm
Data Reviewed
-
Total Time Spent with Patient (in minutes): 45
Labs: Labs Reviewed by me
[2024-04-25] MEDS: Pyridium 100 MG PO ×2 (12:43→20:59)
--- NOTE | 2024-04-25 14:47 | W.PN.ID1 ---
Date of Service
Date of Service: April 25, 2024
Today's Communication
Transition antibiotics to oral ciprofloxacin for an additional 14 days.
Assessment / Plan
Pseudomonas bacteremia
Pseudomonas complicated urinary tract infection
Recent aqua ablation for BPH
Fever
Leukocytosis
Recommendations:
Sensitivities returned. Isolate is susceptible to ciprofloxacin.
Discontinue further cefepime and transition to Cipro x 14 days.
Counseled patient to follow-up with Urologist quickly following discharge.
����������������������������������������������������������
Chief Complaint
-: UTI and Bacteremia
Subjective / Review of Systems
Review of Systems: No Fever and No Chills
Vital Signs / Physical Exam
Vital Signs
Vital Signs
Temp Pulse Resp BP Pulse Ox
98.1 F 77 20 143/78 98
04/25/24 11:50 04/25/24 11:50 04/25/24 11:50 04/25/24 11:50 04/25/24 11:50
Physical Exam
Constitutional: No Acute Distress, Comfortable and Non-toxic
Eyes: Sclera Anicteric
Pulmonary: Non Labored
Gastrointestinal: Non Distended
Genito-Urinary: Negative CVA Tenderness
Extremities: Negative Edema, Cyanosis or Erythema
Neurological: Awake and Alert
Psychological: Calm
Objective Data
Lab Data
Lab Results
04/25/24 06:15
04/25/24 06:15
Estimated Creat Clear 68 ml/min 04/25/24 06:15
Total Bilirubin 0.4 mg/dl (0.2-1.3) 04/25/24 06:15
AST 31 U/L (17-59) 04/25/24 06:15
ALT 62 U/L (0-50) H 04/25/24 06:15
Alkaline Phosphatase 79 U/L (38-126) 04/25/24 06:15
Most recent labs reviewed.
Micro Results:
04/22/24 21:44 Blood Culture - Preliminary
Blood/Venous Pseudomonas aeruginosa
M.I.C. RX
--------- ---
Aztreonam 8 S
Cefepime <=2 S
Ceftazidime 4 S
Ciprofloxacin <=0.25 S
Meropenem <=1 S
Piperacillin/Tazobactam <=8 S
Tobramycin <=2 S
04/22/24 18:21 Urine Culture - Final
Urine Pseudomonas aeruginosa
04/25/24 07:00 Blood Culture - Pending
Blood/Venous
04/25/24 06:15 Blood Culture - Pending
Blood/Venous
04/22/24 21:44 Blood Culture - Preliminary
Blood/Venous No Growth in 48 hours- Final report to follow
04/22/24 18:21 Influenza Types A & B (EKATERINA) - Final
Nasal Swab Negative for Influenza A & B, NAAT
Negative results must be combined with clinical observations
and patient history.
Nucleic Acid Amplification test (NAAT)performed on the
[employer] platform.
Care Review
Plan reviewed with: Physician (Hospitalist)
[2024-04-25 15:06] VITALS: BP 137/69
--- NOTE | 2024-04-25 17:40 | CM ---
Spoke with pt he said ID will dc him with po antibiotics.
His will drive him home.
PLAN Home with no needs
[2024-04-25] MEDS: CIPRO 500 MG PO (20:58)
[2024-04-25] MEDS: XALATAN OPHTHALMIC SOLUTION 1 DROP BOTH EYES (21:00)
[2024-04-25 23:55] VITALS: BP 130/66
--- NOTE | 2024-04-26 01:21 | PTCARENOTE ---
Addendum entered by Benny Dumont RN 04/26/24 06:06:
pt voided three times during shift.Denies of any difficulties with voiding.
Original Note:
Pt AAOX3 able to make his needs known. Pt voided in the urinal 220ml & was bladder scan for 430ml. Pt was made aware of need to be straight cath, pt refusing for any catheter as he recently had a urological procedure & pt refusing for any more
bladder scans. As per pt he states he was told by the doctors he will time to recover, so pt wants to wait. He is agreeable to use the urinal as needed.[employer] mergers and acquisitions consultant made aware of pt bladder scan results, refusing for straight cath,refusing bladder
scan. Plan of care continued.
--- NOTE | 2024-04-26 01:37 | W.PN.UPDATE ---
Update Note
Progress Note Update
RN reports high PVR but pt refusing straight cath and further bladder scans
[2024-04-26] MEDS: TYLENOL 650 MG PO ×2 (04:20→09:29)
[2024-04-26 07:40] VITALS: BP 142/63
[2024-04-26 07:52] LABS: ALT (SGPT) 49 U/L (0-50); AST (SGOT) 25 U/L (17-59); Albumin 3.4 g/dl (3.5-5.0); Alkaline Phosphatase 81 U/L (38-126); Blood Urea Nitrogen 16 mg/dl (9-20); Calcium 8.7 mg/dl (8.4-10.2); Carbon Dioxide 26 mmol/L (22-30); Chloride 104 mmol/L (98-107); Estimated Creatinine Clearance 68 ml/min; Glucose 113 mg/dl (70-99); Potassium 4.1 mmol/L (3.5-5.1); Sodium 140 mmol/L (135-145); Total Bilirubin 0.2 mg/dl (0.2-1.3); Total Protein 5.8 g/dl (6.3-8.2); eGFR > 60.00
[2024-04-26] MEDS: TRIAMCINOLONE ACETONIDE 0.1% CREAM TOPICAL (07:56)
[2024-04-26] MEDS: VESICARE 5 MG PO (07:56)
[2024-04-26] MEDS: CIPRO 500 MG PO (07:56)
--- NOTE | 2024-04-26 10:02 | CM ---
As per ID pt will transition to po antibiotics at mt.
Offered Vn he declined need.
His will drive him home.
PLAN Home with no needs
--- NOTE | 2024-04-26 11:16 | W.PN.HOSP.TC ---
Today's Communication/Plan
-
dc to home
Assessment / Plan
Assessment / Plan
Assessment:
Complicated UTI/pseudomonas UTI with sepsis POA (fever, leukocytosis) along with pseudomonas bacteremia
- recent Aqua-ablation procedure for BPH 04/17/24 (Dr. Jennifer Steele/[facility])
- per ID, dc on Cipro x 14 days
- repeat cultures NGTD
- ID and Urology following
- Bladder scans
- renal/Bladder US: Moderate urinary retention with 322 mL postvoid residual. Normal kidneys with no hydronephrosis
Post-procedure hematuria
- related to recent Aqua-ablation procedure for BPH 04/17/24 (Dr. Jennifer Steele/[facility])
- subjectively lightening per patient
Rash
- continue steroids topically
TME in setting of complicated UTI
- improving
Hyponatremia - resolved
Mild transaminitis - resolving
hx of BPH
- OP Urology f/u
DVT ppx: SCDs while hematuria continues to recover
Code: Full
More than 30 minutes spent in discharge including
Final examination of the patient
Summarizing hospital stay
Instructions for continuing care to all relevant caregivers
Preparation of discharge records, prescriptions, and referral forms
Total time spent (in minutes): 41
Anticipated Discharge: Today
Subjective/Interval History
-
Date of Service: April 26, 2024
no complaints
urinating ok, no complaints
Objective Data
-
Labs:
Laboratory Results
04/26/24 04/26/24
05:39 06:00
WBC Pending
Hgb Pending
Hct Pending
Plt Count Pending
Sodium 140
Potassium 4.1
Chloride 104
Carbon Dioxide 26
BUN 16
Creatinine 1.0
Glucose 113 H
Calcium 8.7
Total Bilirubin 0.2
AST 25
ALT 49
Alkaline Phosphatase 81
Vital Signs:
Vital Signs
Temp Pulse Resp BP Pulse Ox
98.3 F 100 18 142/63 95
04/26/24 07:40 04/26/24 07:40 04/26/24 07:40 04/26/24 07:40 04/26/24 09:45
I&O
04/25/24 04/26/24 04/27/24
06:59 06:59 06:59
Intake Total 1919 1560 / 1560
Output Total 880 / 880
Balance 1919 680 / 680
Physical Exam
-
General: No Apparent Distress
HEENT: Normocephalic and Atraumatic
Respiratory: Negative Wheezes
Cardiac: Regular Rhythm and S1/S2
GI: Soft and Nontender
Genito-urinary: No Costovertebral Tender
Neuro: AO x 3
Hematologic / Lymphatic: No Lymphadenopathy
Psych: Calm
Data Reviewed
-
Total Time Spent with Patient (in minutes): 41
Labs: Labs Reviewed by me
--- NOTE | 2024-04-26 11:24 | W.DS.TRANS ---
DC Summary - Clinical Counselor
-
Discharge Instructions:
Sleep Apnea Risk Low
Discharge Diagnosis/Procedures pseudomonas UTI/bacteremia
Diet Regular
Activity As tolerated
Instructions:
Stand-Alone Forms:
Changes to Home Medications: No
Discharge Medications:
DC Medications w/original date entered in [employer]
cholecalciferol (vitamin D3) 125 mcg (5,000 unit) tablet 5,000 unit PO DAILY Supplement 02/06/22
multivitamin 1 tab PO DAILY Supplement 02/06/22
omega-3 fatty acids 1,000 mg PO DAILY Supplement 02/06/22
travoprost 0.004 % eye drops 1 drp BOTH EYES DAILY Eye Condition 02/06/22
acetaminophen 500 mg tablet 1,000 mg PO Q6H PRN pain 02/10/22
solifenacin 5 mg tablet 5 mg PO DAILY Neurological Condition 04/22/24
ciprofloxacin HCl 500 mg tablet 500 mg PO BID #26 tabs 04/26/24
phenazopyridine 100 mg tablet 100 mg PO TIDPRN PRN urinary pain #20 tabs 04/26/24
triamcinolone acetonide 0.1 % topical cream 1 applic topical BID #80 grams 04/26/24
Home Medication Changes
Pending Results: No
Total time spent discharging patient (in min): 41
[2024-04-26 11:39] VITALS: BP 123/66
== END 2024-04-26 12:38 | disposition home or self-care (01) | DRG 862 ==
LOC: 4 EAST ACU 23:23
PROVIDERS: Emergency Medicine; Hospitalist; ADMITTING PHYSICIAN Hospitalist; ATTENDING PHYSICIAN Internal Medicine; CONSULT PHYSICIAN Surgery; EMERGENCY PHYSICIAN Emergency Medicine; FAMILY PHYSICIAN Family Medicine; OTHER PHYSICIAN Internal Medicine Infectious Disease
DX: T81.44XA Sepsis following a procedure, initial encounter (principal); A41.52 Sepsis due to Pseudomonas; G92.8 Other toxic encephalopathy; N39.0 Urinary tract infection, site not specified; E87.1 Hypo-osmolality and hyponatremia; N40.0 Benign prostatic hyperplasia without lower urinary tract symptoms; R31.9 Hematuria, unspecified; R74.01 Elevation of levels of liver transaminase levels; Z88.5 Allergy status to narcotic agent; Z79.899 Other long term (current) drug therapy; Z96.612 Presence of left artificial shoulder joint; Z11.52 Encounter for screening for COVID-19; Y83.8 Other surgical procedures as the cause of abnormal reaction of the patient, or of later complication, without mention of misadventure at the time of the procedure
CPT/HCPCS: 71046; 76770; 80048; 80053; 81003; 81015; 85025; 85027; 87040; 87086; 87088; 87149; 87186; 87205; 87502; 87811; 96361; 96374; 97116; 97162; 97166; 99285